=== PATIENT | female | born 1975 | race Caucasian/White ===

== ENCOUNTER 2017-08-24 11:46 | Emergency (ER) | payer OTHER ==
[~2017-08-24] VITALS: Ht 162.6 cm; Wt 113.4 kg
[~2017-08-24 11:46] MED LIST: AUGMENTIN 875875 MG PO; KLOR-CON 1010 MEQ PO; LAMICTAL100 MG PO; LASIX 20 MG TAB20 MG PO; LISINOPRIL10 MG PO; NEURONTIN250 MG/5 M PO; TRAMADOL 50 MG50 MG PO; VYVANSE10 MG PO
[2017-08-24 12:45] LABS: URINE BILIRUBIN NEGATIVE (Negative); URINE BLOOD TRACE (Negative); URINE CLARITY CLEAR; URINE COLOR YELLOW; URINE GLUCOSE-RANDOM NEGATIVE (Negative); URINE KETONES NEGATIVE (Negative); URINE LEUKOCYTES-REFLEX NEGATIVE (Negative); URINE NITRITE-REFLEX NEGATIVE (Negative); URINE PROTEIN NEGATIVE (Negative); URINE UROBILINOGEN 0.2 E.U./dl (0.2-1.0)
[2017-08-24] MEDS ORDERED: HYDROCODONE-AP1 EAC6 PO (12:49)
[2017-08-24] MEDS ORDERED: FLEXERIL PO (13:34)
[2017-08-24 13:49] VITALS: BP 151/98
[2017-08-24] MEDS ORDERED: KEFLEX500 M1 PO (19:59)
== END 2017-08-24 13:50 | disposition home or self-care (01) ==
LOC: M.ERS 11:46
PROVIDERS: Physician Assistant
DX: M54.5 Low back pain (principal); I10 Essential (primary) hypertension; G43.909 Migraine, unspecified, not intractable, without status migrainosus; F17.210 Nicotine dependence, cigarettes, uncomplicated; Z88.8 Allergy status to other drugs, medicaments and biological substances

== ENCOUNTER 2017-08-24 17:46 | Emergency (ER) | payer OTHER ==
[~2017-08-24] VITALS: Ht 162.6 cm; Wt 102.5 kg
[~2017-08-24 17:46] MED LIST changes: +FLEXERIL PO; +HYDROCODONE-AP1 EAC6 PO
[2017-08-24] MEDS ORDERED: KEFLEX500 M1 PO (19:59)
[2017-08-24 20:17] VITALS: BP 130/75
== END 2017-08-24 20:18 | disposition home or self-care (01) ==
LOC: M.ERS 17:46
DX: S51.812A Laceration without foreign body of left forearm, initial encounter (principal); I10 Essential (primary) hypertension; G43.909 Migraine, unspecified, not intractable, without status migrainosus; Z88.8 Allergy status to other drugs, medicaments and biological substances; X58.XXXA Exposure to other specified factors, initial encounter; Y93.89 Activity, other specified; Y92.89 Other specified places as the place of occurrence of the external cause; Y99.8 Other external cause status

== ENCOUNTER 2018-04-18 14:17 | Inpatient (IN) | payer OTHER ==
[~2018-04-18] VITALS: Ht 162.6 cm; Wt 125.6 kg
[~2018-04-18 14:17] MED LIST changes: +KEFLEX500 M1 PO; +LEXAPRO 10 MG T10 M1 PO; +MEDROLDOSEPACK PO; +TESSALON PERLE100 MG PO; +VENTOLIN HFA 1818 GM INH; +XANAX1 MG PO; +ZPAK PO
[2018-04-18 15:28] LABS: ABSOLUTE BASOPHILS 0.2 thou/uL (0.0-0.2); ABSOLUTE EOSINOPHILS 0.2 thou/uL (0.0-0.7); ABSOLUTE LYMPHOCYTES 3.2 thou/uL (0.8-5.3); ABSOLUTE MONOCYTES 1.1 thou/uL (0.0-1.2); ABSOLUTE NEUTROPHILS 9.9 thou/uL (1.6-8.1); BASOPHILS 1.1 %; EOSINOPHILS 1.7 %; HEMATOCRIT 46.6 % (37.0-47.0); MCH 32.1 pg (26.0-34.0); MCHC 34.4 g/dL (28.0-37.0); MCV 93.3 fL (80.0-100.0); MONOCYTES 7.4 %; MPV 6.9 fl. (7.2-11.1); NUCLEATED RBCS 0 /100WBC; PLATELET COUNT* 598 thou/uL (150-400); POLYS 67.8 %; RDW-CV 14.3 % (10.5-14.5); WBC 14.6 thou/uL (4.0-11.0)
[2018-04-18 15:41] LABS: ANION GAP 8 mmol/L (7-16); BUN 9 mg/dL (7-18); CHLORIDE 95 mmol/L (98-107); CO2 32 mmol/L (21-32); CREATININE 0.7 mg/dL (0.6-1.3); GLUCOSE 104 mg/dL (70-99); POTASSIUM 3.5 mmol/L (3.5-5.1); SODIUM 135 mmol/L (136-145); TROPONIN-I LEVEL <0.06 ng/mL (<0.06)
[2018-04-18 15:44] LABS: ALBUMIN 3.1 g/dL (3.4-5.0); ALKALINE PHOSPHATASE 139 U/L (46-116); NT-PRO BRAIN NAT PEPTIDE 27 pg/mL (<300); SGOT 20 U/L (15-37); SGPT 25 U/L (30-65); TOTAL BILIRUBIN 0.5 mg/dL (<0.1-1.0); TOTAL PROTEIN 8.1 g/dL (6.4-8.2)
[2018-04-18 15:50] LABS: INFLUENZA A ANTIGEN None Detected (None Detect); INFLUENZA B ANTIGEN None Detected (None Detect)
[2018-04-18 17:52] VITALS: BP 151/89
[2018-04-18 18:07] LABS: URINE BILIRUBIN NEGATIVE (Negative); URINE BLOOD TRACE (Negative); URINE CLARITY CLEAR; URINE COLOR YELLOW; URINE GLUCOSE-RANDOM NEGATIVE (Negative); URINE KETONES NEGATIVE (Negative); URINE LEUKOCYTES-REFLEX NEGATIVE (Negative); URINE NITRITE-REFLEX NEGATIVE (Negative); URINE PROTEIN NEGATIVE (Negative); URINE SPECIFIC GRAVITY <= 1.005 (1.005-1.030); URINE UROBILINOGEN 0.2 E.U./dl (0.2-1.0)
--- NOTE | 2018-04-18 18:43 | NUR ---
PT ARRIVED ON THE UNIT AT 1810 FROM ER. REPORT TAKEN FROM CAROLA WU. ASSESSED PT AND DOCUMENTED. CARDIAC MONITER TRACING SR HR 95. FALL AGREEMENT SIGNED. SCDS ON. VSS WNL. PT IS AFEBRILE. 02 WAS 88 SO PT ON 2L OF 02. SHE C/O PAIN IN HER BACK TREATED IN THE ER. PT HAS NO S OR SX OF ADVERSE REATION TO ABT NOTED. SKIN IS IN TACT. IS AT BEDSIDE AND WILL BE STAYING THE NIGHT.
[2018-04-18 18:46] VITALS: BP 139/78
[2018-04-18 20:00] VITALS: BP 143/87
[2018-04-18] MEDS ORDERED: LOXAPINE25 MG PO (21:27)
[2018-04-18] MEDS ORDERED: NEURONTIN600 MG PO (21:28)
[2018-04-18] MEDS ORDERED: AMBIEN 5 MG TABL5 M1 PO (21:28)
[2018-04-19] VITALS: BP 136/59; BP 139/52
[2018-04-19 05:00] VITALS: BP 138/81
--- NOTE | 2018-04-19 05:28 | NUR ---
ASSUMED PT CARE AT AROUND 1930. REASSESSMENT DONE AND CHARTED. PT AWAKE AND ALERT X4. VSS ON 2L OF O2/NC. PERSONAL FINANCIAL ADVISOR IN PLACE TRACING ST/SR. PT COMPLAINS OF BACK PAIN THAT WAS PARTIALLY RELEIVED BY TYLENOL. PT WAS ABLE TO SLEEP THROUGH THE NIGHT. HOURLY ROUNDING DONE FOR PT SAFETY.
--- NOTE | 2018-04-19 07:30 | NUR ---
ASSUMED CARE OF PT ASSESSED AND DOCUMENTED. PT ON CARDIAC MONITER TRACING SR HR 81. PT IS A&O WITH NO C/O PAIN. VSS WNL. PT IS AFEBRILE. SHE IS ON 1L OF 02 SAT 94. BED IS IN LOW POSITION CALL LIGHT IS IN REACH. IS AT BEDSIDE. WM.
[2018-04-19 08:00] VITALS: BP 133/78
[2018-04-19 12:20] VITALS: BP 146/72
--- NOTE | 2018-04-19 14:09 | EKG ---
[place] [address] ELECTROCARDIOGRAM REPORT Name: VIRGEN SANTACRUZ Room: [address] ADM IN M.R.#: [id number] Admission: 04/18/18 Attend Phys: Ace Del Rio MD Discharge: Date of : 77 Report #: [id number] THIS REPORT FOR: //name// [facility] ED Test Date: 2018-04-18 Test Time: 15:14:52 Pat Name: VIRGEN SANTACRUZ Department: Room: [facility] Gender: F [employer]: ELIZABETH : 1975 Requested By: Luba Benavides Order Number: [id number] MD: Wesley Stallings Measurements Intervals [place] Rate: 92 P: 18 VA: 142 QRS: -72 QRSD: 116 T: 51 QT: 405 QTc: 502 Interpretive Statements Sinus rhythm Nonspecific IVCD with LAD Inferior infarct, old Compared to ECG 06/05/2005 14:08:16 Intraventricular conduction delay now present Myocardial infarct finding now present Fusion complex(es) no longer present Ventricular premature complex(es) no longer present Incomplete right bundle-branch block no longer present Electronically Signed On 04-19-2018 14:09:20 BIOLOGIST by Wesley Stallings [email or web address] <ELECTRONICALLY SIGNED> By: Wesley Stallings MD, [facility] 04/19/18 1409 1514 1514 Wesley Stallings MD, [facility] /EPI
[2018-04-19 16:27] VITALS: BP 158/96
--- NOTE | 2018-04-19 17:40 | NUR ---
PT HAS RESTED IN HER ROOM THIS SHIFT WITH AT BEDSIDE. SHE HAS HAD NO S OR SX OF ADVERSE REACTION TO ABT NOTED. SHE HAS HAD NO C/O PAIN OR DISCOMFORT. EDUCATION GIVEN ON DEMAND. HOURLY ROUNDING CONTINUES.
[2018-04-19 20:00] VITALS: BP 154/94
[2018-04-20] VITALS: BP 121/57
[2018-04-20 04:00] VITALS: BP 152/86
--- NOTE | 2018-04-20 05:50 | NUR ---
ASSUMED PT CARE AT APPROX 1930. PT AWAKE AND ALERT X4. VSS ON 2L/NC. KINDERGARTEN TEACHER IN PLACE TRACING SR/ST. DENIES ANY DISCOMFORT. SAYS SHE "FEELS BETTER". PT WAS ABLE TO SLEEP THROUGH THE NIGHT. HOURLY ROUNDING DONE FOR PT SAFETY. CALL LIGHT WITHIN REACH.
--- NOTE | 2018-04-20 07:25 | NUR ---
CHANGE OF SHIFT BEDSIDE REPORT GIVEN PATIENT SEEN AT BEDSIDE IN BED RESTING AND WATCHING TV ASSUMED PATIENT CARE
[2018-04-20 08:00] VITALS: BP 138/74
--- NOTE | 2018-04-20 11:26 | NUR ---
MET WITH PT AND SPOUSE TO DISCUSS HOME SITUATION/DC PLANNING. PT LIVES WITH SPOUSE AND CHILDREN. IS INDEPENDENT AND ACTIVE. PT DOESN'T HAVE A PCP BUT PER SPOUSE, THEY HAVE ONE IN MIND TO USE. ENCOURAGED HER TO MAKE APPT WILL NEED F/U AFTER DC. PT AND SPOUSE DENY ANY DC NEEDS. WILL FOLLOW
[2018-04-20] MEDS ORDERED: AZITHROMYCIN 2250 MG PO (11:55)
[2018-04-20] MEDS ORDERED: CEFDINIR300 MG PO (11:55)
[2018-04-20] MEDS ORDERED: PREDNISONE 20 M20 MG PO (11:56)
[2018-04-20 13:05] VITALS: BP 129/72
[2018-04-20 13:20] VITALS: BP 129/72
--- NOTE | 2018-04-20 13:40 | NUR ---
PATIENT DISCHARGED TO HOME ALL DC INSTRUCTION GIVEN IV AND HEART MONITOR REMOVED PERSONAL BELONGINGS RETURNED PATIENT ESCORTED OUT AMBULATORY TO WAITING CAR
--- NOTE | 2018-04-22 07:34 | CON ---
[address] [address] CONSULTATION Name: VIRGEN SANTACRUZN Room: [address] IN M.R.#: [id number] Admission: 04/18/18 Attend Phys: Ace Del Rio MD Discharge: 04/20/18 Date of : 77 Report #: [id number] THIS REPORT FOR: //name// CC: [facility] physician/PCP Ace Del Rio DATE OF SERVICE: 04/19/2018 REASON FOR EVALUATION: Evaluate community-acquired pneumonia, hypoxia, respiratory distress. HISTORY OF PRESENT ILLNESS: The patient is a 42-year-old woman with chief complaint of cough, shortness of breath since Friday. She states she has been coughing since Friday, associated shortness of breath. Associated generalized weakness. No history of documented fever. Treated with azithromycin and Medrol pack and albuterol inhaler. Since admission, she was on p.o. prednisone and bronchodilator treatment with improvement, currently on 2 liters, not in distress, speaking full sentences. Her cough is productive of yellow mucus. Has leukocytosis. Chest CT, which I reviewed, showed minimal patchy bilateral ground glass densities, no consolidation. Her chest CT did not show any pulmonary embolism; however, was suboptimal with contrast. Initially, was given ceftriaxone and azithromycin and currently on azithromycin and given also ceftriaxone. PAST MEDICAL HISTORY: Back pain, takes Tylenol and ibuprofen. History of sinusitis, history of left forearm laceration. ALLERGIES: None. SOCIAL HISTORY: Denies smoking. FAMILY HISTORY: Noncontributory. No family history of asthma. PHYSICAL EXAMINATION: GENERAL: The patient is pleasant, not in distress. VITAL SIGNS: Stable. She is on nasal cannula 2 liters, afebrile, pulse is 95, blood pressure 133/78. HEENT: Oral mucosa is clear. NECK: Supple. No lymph node enlargement. CHEST: No wheezing. Scattered rhonchi at the bases. CARDIOVASCULAR: Regular rhythm. ABDOMEN: Soft, nontender. EXTREMITIES: No edema. Pulses were equal. NEUROLOGIC: No focal deficit grossly. PSYCHIATRIC: [place] [address] CONSULTATION Name: IVRGEN SANTACRUZ AJ Room: [address]#: [id number] Admission: 04/18/18 Attend Phys: Ace Del Rio MD Discharge: 04/20/18 Date of : 77 Report #: [id number] LABORATORY AND OTHER DATABASE: White blood cell count was 14,000. Serology: Influenza antigen was negative. Creatinine normal. Albumin is 3.1. ProBNP was normal at 27. CT chest as above. ASSESSMENT AND PLAN: Bronchospasm with associated productive cough, bilateral ground glass densities, suspect community acquired pneumonia, which could be as well viral. May check viral panel. At this time, however, she is improving. Continue azithromycin, continue Rocephin. She has bronchospasm, suspect bronchial asthma as well. She is currently on steroids oral with improvement. Agreed to continue treatment. Will need bronchodilator treatment at home with albuterol steroid inhaler. At this time, doubt PE. The patient much improved with treatment of steroids and bronchodilator treatment. No significant wheezing and her shortness of breath has improved. Her CT is negative for PE, even suboptimal. Recommend pulmonary function test as outpatient. Congestive heart failure is unlikely with normal proBNP. <ELECTRONICALLY SIGNED> By: Raj Cali MD 04/22/18 0734 1130 [id number] Ailyn Garcia MD /nt
== END 2018-04-20 13:40 | disposition home or self-care (01) | DRG 190 ==
LOC: M.ERS 14:17 → M.TBA-ER 16:56 → M.2W 16:56
PROVIDERS: Nurse Practitioner Family
DX: J44.0 Chronic obstructive pulmonary disease with (acute) lower respiratory infection (principal); J12.9 Viral pneumonia, unspecified; J44.1 Chronic obstructive pulmonary disease with (acute) exacerbation; G43.909 Migraine, unspecified, not intractable, without status migrainosus; I10 Essential (primary) hypertension; F31.9 Bipolar disorder, unspecified; F17.210 Nicotine dependence, cigarettes, uncomplicated; Z90.49 Acquired absence of other specified parts of digestive tract; Z79.899 Other long term (current) drug therapy

== ENCOUNTER 2018-09-13 15:47 | Inpatient (IN) | payer OTHER ==
[~2018-09-13] VITALS: Ht 165.1 cm; Wt 136.1 kg
[~2018-09-13 15:47] MED LIST changes: +AMBIEN 5 MG TABL5 M1 PO; +AZITHROMYCIN 2250 MG PO; +CEFDINIR300 MG PO; +LOXAPINE25 MG PO; +NEURONTIN600 MG PO; +PREDNISONE 20 M20 MG PO
[2018-09-13 15:59] VITALS: BP 144/95
[2018-09-13 16:30] LABS: ABSOLUTE BASOPHILS 0.1 thou/uL (0.0-0.2); ABSOLUTE EOSINOPHILS 0.3 thou/uL (0.0-0.7); ABSOLUTE LYMPHOCYTES 2.3 thou/uL (0.8-5.3); ABSOLUTE MONOCYTES 0.7 thou/uL (0.0-1.2); BASOPHILS 1.2 %; EOSINOPHILS 2.6 %; HEMATOCRIT 46.7 % (37.0-47.0); HEMOGLOBIN 16.3 gm/dL (12.0-15.0); LYMPHOCYTES 21.9 %; MCH 32.1 pg (26.0-34.0); MCV 91.7 fL (80.0-100.0); MONOCYTES 6.3 %; MPV 8.1 fl. (7.2-11.1); NUCLEATED RBCS 0 /100WBC; PLATELET COUNT* 333 thou/uL (150-400); RBC 5.09 mil/uL (4.20-5.00); RDW-CV 14.7 % (10.5-14.5); WBC 10.4 thou/uL (4.0-11.0)
[2018-09-13 16:39] LABS: CALCIUM 9.5 mg/dL (8.5-10.1); CREATININE 0.9 mg/dL (0.6-1.3); POTASSIUM 3.2 mmol/L (3.5-5.1)
[2018-09-13 16:44] LABS: ALBUMIN 3.7 g/dL (3.4-5.0); TOTAL PROTEIN 8.1 g/dL (6.4-8.2)
[2018-09-13 18:36] LABS: URINE BLOOD TRACE (Negative); URINE CLARITY CLEAR; URINE COLOR DARK YELLOW; URINE GLUCOSE-RANDOM NEGATIVE (Negative); URINE KETONES 1+ (Negative); URINE LEUKOCYTES-REFLEX NEGATIVE (Negative); URINE NITRITE-REFLEX NEGATIVE (Negative); URINE PROTEIN TRACE (Negative); URINE SPECIFIC GRAVITY >= 1.030 (1.005-1.030)
[2018-09-13 18:38] LABS: ICTOTEST (BILI CONFIRMATORY) Negative (Negative); URINE BILIRUBIN 2+ (Negative)
[2018-09-13 18:43] LABS: AMP/METHAMP POSITIVE (Negative); BARBITURATES Negative (Negative); BENZODIAZEPINES POSITIVE (Negative); COCAINE Negative (Negative); METHADONE Negative (Negative); OPIATES Negative (Negative); PCP Negative (Negative); THC POSITIVE (Negative)
[2018-09-13 19:37] VITALS: BP 146/79
[2018-09-14] MEDS ORDERED: LOXAPINE50 MG PO (16:43)
--- NOTE | 2018-09-14 17:02 | EKG ---
[place] [address] ELECTROCARDIOGRAM REPORT Name: NEETAVIRGEN Room: [place] [address] DIS IN M.R.#: [id number] Admission: 09/13/18 Attend Phys: Andrew Kline MD Discharge: 09/13/18 Date of : 77 Report #: [id number] THIS REPORT FOR: //name// [facility] ED Test Date: 2018-09-13 Test Time: 16:09:41 Pat Name: VIRGEN SANTACRUZ Department: Room: [place] [address] Gender: F Psychiatric Np: DARLEEN : 1975 Requested By: Areli Moss Order Number: [id number] MD: Lenny Newsome Measurements Intervals [place] Rate: 101 P: 59 SC: 170 QRS: 45 QRSD: 133 T: 85 QT: 374 QTc: 485 Interpretive Statements Sinus tachycardia IVCD, consider atypical RBBB Compared to ECG 04/18/2018 15:14:52 Sinus rhythm no longer present Myocardial infarct finding no longer present Electronically Signed On 09-14-2018 17:01:51 CDT by Lenny Newsome [email or web address] <ELECTRONICALLY SIGNED> By: Lenny Newsome MD, FACC 09/14/18 1701 1609 1609 Lenny Newsome MD, [facility] /EPI
== END 2018-09-13 19:38 | disposition left against medical advice (07) | DRG 101 ==
LOC: M.ERS 15:47 → M.TBA-ER 18:41
PROVIDERS: Personal Emergency Response Attendant; ADMIT Internal Medicine
DX: R56.9 Unspecified convulsions (principal); I10 Essential (primary) hypertension; F31.9 Bipolar disorder, unspecified; F41.1 Generalized anxiety disorder; Z53.21 Procedure and treatment not carried out due to patient leaving prior to being seen by health care provider; F90.9 Attention-deficit hyperactivity disorder, unspecified type; Z90.49 Acquired absence of other specified parts of digestive tract; Z72.820 Sleep deprivation; Z79.2 Long term (current) use of antibiotics; Z79.899 Other long term (current) drug therapy

== ENCOUNTER 2018-09-19 15:27 | Emergency (ER) | payer OTHER ==
[~2018-09-19] VITALS: Ht 165.1 cm; Wt 123.8 kg
[~2018-09-19 15:27] MED LIST changes: +LOXAPINE50 MG PO
[2018-09-19 17:36] LABS: HEMOGLOBIN 15.1 gm/dL (12.0-15.0)
[2018-09-19 17:39] LABS: HEMATOCRIT 43.7 % (37.0-47.0); MCHC 34.6 g/dL (28.0-37.0); MCV 92.3 fL (80.0-100.0); MPV 7.7 fl. (7.2-11.1); NUCLEATED RBCS 0 /100WBC; PLATELET COUNT* 331 thou/uL (150-400); RBC 4.73 mil/uL (4.20-5.00); RDW-CV 14.1 % (10.5-14.5); WBC 8.2 thou/uL (4.0-11.0)
[2018-09-19 17:47] LABS: ANION GAP 4 mmol/L (7-16); BUN 5 mg/dL (7-18); CALCIUM 8.5 mg/dL (8.5-10.1); CHLORIDE 104 mmol/L (98-107); CO2 34 mmol/L (21-32); CREATININE 0.7 mg/dL (0.6-1.3); GLUCOSE 96 mg/dL (70-99); POTASSIUM 3.5 mmol/L (3.5-5.1); SODIUM 142 mmol/L (136-145)
[2018-09-19] MEDS ORDERED: TORADOL 10 MG T10 MG PO (17:56)
[2018-09-19 17:57] LABS: ALBUMIN 2.8 g/dL (3.4-5.0); ALKALINE PHOSPHATASE 112 U/L (46-116); SGOT 20 U/L (15-37); SGPT 36 U/L (30-65); TOTAL BILIRUBIN 0.4 mg/dL (<0.1-1.0); TOTAL PROTEIN 6.6 g/dL (6.4-8.2); TROPONIN-I LEVEL <0.06 ng/mL (<0.06)
[2018-09-19 18:22] VITALS: BP 135/99
[2018-09-19 18:28] LABS: ABSOLUTE EOSINOPHILS 0.2 thou/uL (0.0-0.7); ABSOLUTE MONOCYTES 0.3 thou/uL (0.0-1.2); ABSOLUTE NEUTROPHILS 4.8 thou/uL (1.6-8.1); ATYPICAL LYMPHS 3 %; PLATELET ESTIMATE ADEQUATE
== END 2018-09-19 18:24 | disposition home or self-care (01) ==
LOC: M.ERS 15:27
PROVIDERS: Personal Emergency Response Attendant
DX: M79.10 Myalgia, unspecified site (principal); R07.89 Other chest pain; G43.909 Migraine, unspecified, not intractable, without status migrainosus; I10 Essential (primary) hypertension; F31.9 Bipolar disorder, unspecified; G47.00 Insomnia, unspecified; Z90.89 Acquired absence of other organs; Z79.899 Other long term (current) drug therapy

== ENCOUNTER 2018-10-03 13:11 | Emergency (ER) | payer OTHER ==
[~2018-10-03] VITALS: Ht 162.6 cm; Wt 124.7 kg
[~2018-10-03 13:11] MED LIST changes: +TORADOL 10 MG T10 MG PO
[2018-10-03 13:52] LABS: HEMATOCRIT 42.6 % (37.0-47.0); HEMOGLOBIN 14.7 gm/dL (12.0-15.0); MCH 32.9 pg (26.0-34.0); MCHC 34.5 g/dL (28.0-37.0); MCV 95.3 fL (80.0-100.0); MPV 6.6 fl. (7.2-11.1); NUCLEATED RBCS 0 /100WBC; PLATELET COUNT* 373 thou/uL (150-400); RBC 4.47 mil/uL (4.20-5.00); RDW-CV 15.1 % (10.5-14.5); WBC 10.9 thou/uL (4.0-11.0)
[2018-10-03 13:58] LABS: URINE BLOOD TRACE (Negative); URINE CLARITY CLEAR; URINE COLOR YELLOW; URINE GLUCOSE-RANDOM NEGATIVE (Negative); URINE KETONES NEGATIVE (Negative); URINE LEUKOCYTES-REFLEX NEGATIVE (Negative); URINE NITRITE-REFLEX NEGATIVE (Negative); URINE PROTEIN NEGATIVE (Negative); URINE SPECIFIC GRAVITY 1.025 (1.005-1.030); URINE UROBILINOGEN 0.2 E.U./dl (0.2-1.0)
[2018-10-03 14:05] LABS: CALCIUM 8.2 mg/dL (8.5-10.1); CREATININE 0.7 mg/dL (0.6-1.3)
[2018-10-03 14:07] LABS: POTASSIUM 2.9 mmol/L (3.5-5.1)
[2018-10-03 14:08] LABS: URINE BILIRUBIN 1+ (Negative)
[2018-10-03 14:09] LABS: ICTOTEST (BILI CONFIRMATORY) Positive (Negative)
[2018-10-03 14:09] LABS: TOTAL BILIRUBIN 0.3 mg/dL (<0.1-1.0); TOTAL PROTEIN 6.9 g/dL (6.4-8.2)
[2018-10-03 14:28] LABS: ABSOLUTE BASOPHILS 0.1 thou/uL (0.0-0.2); ABSOLUTE EOSINOPHILS 0.1 thou/uL (0.0-0.7); ABSOLUTE LYMPHOCYTES 3.2 thou/uL (0.8-5.3); ABSOLUTE MONOCYTES 0.5 thou/uL (0.0-1.2)
[2018-10-03 14:29] LABS: PLATELET ESTIMATE ADEQUATE
[2018-10-03 14:30] LABS: ANISOCYTOSIS Occasional
[2018-10-03] MEDS ORDERED: NORCO 5-325 TA1 EAC1 PO (14:54)
[2018-10-03] MEDS ORDERED: POTASSIUM20 PO (14:54)
[2018-10-03] MEDS ORDERED: NORCO 7.5-3251 EACH PO (15:11)
[2018-10-03 15:30] VITALS: BP 150/93
== END 2018-10-03 15:30 | disposition home or self-care (01) ==
LOC: M.ERS 13:11
PROVIDERS: Physician Assistant
DX: M54.5 Low back pain (principal); E87.6 Hypokalemia; G43.909 Migraine, unspecified, not intractable, without status migrainosus; I10 Essential (primary) hypertension; F31.9 Bipolar disorder, unspecified; Z90.49 Acquired absence of other specified parts of digestive tract

== ENCOUNTER 2018-10-16 09:18 | Emergency (ER) | payer OTHER ==
[~2018-10-16] VITALS: Ht 162.6 cm; Wt 124.7 kg
[~2018-10-16 09:18] MED LIST changes: +NORCO 5-325 TA1 EAC1 PO; +NORCO 7.5-3251 EACH PO; +POTASSIUM20 PO
[2018-10-16 09:53] VITALS: BP 176/98
== END 2018-10-16 09:53 | disposition home or self-care (01) ==
LOC: M.ERS 09:18
DX: G89.29 Other chronic pain (principal); M54.5 Low back pain; G43.909 Migraine, unspecified, not intractable, without status migrainosus; I10 Essential (primary) hypertension; F31.9 Bipolar disorder, unspecified; Z90.49 Acquired absence of other specified parts of digestive tract